=== PATIENT | male | born 1970 | race Asian ===

== ENCOUNTER 2017-10-09 14:54 | Outpatient (CLI) | END 2017-10-09 14:55 | disposition home or self-care (01) ==

== ENCOUNTER 2019-02-04 12:59 | Outpatient (CLI) | payer OTHER ==
--- NOTE | 2019-02-04 13:34 | SLEEP CARE CONSULTATION ---
Information from patient questionnaire entered by Shelby Hernandez. I have reviewed and concur with the information entered by Shelby Hernandez. This document represents the service I personally performed and the decisions made by me, Sandy Branch MD, [facility]. History of Present Illness Previous diagnosis: Severe, Obstructive Sleep Apnea-Hypopnea Syndrome AHI: 31.4 Reason for CPAP/BiPAP follow up: annual Equipment type: BiPAP Equipment obtained from: [employer] HPI additional information: HPI: Mr. Briones returned today for follow up of BiPAP therapy. He was diagnosed to have severe obstructive sleep apnea-hypopnea syndrome. The patient wears a Respironics DreamWear nasal cushion mask. He gets his supplies from [employer]. He reports using the device nightly and all through the night. The compliance report shows usage in 180 nights out of the past 180 nights, averaging 7.2 hours a night. He complained of no particular problem with the device such as soreness on the face, dry nose, epistaxis, nasal congestion or headache. He thinks that the pressure of 18/12 is comfortable. On the BiPAP therapy he notices improvement in his sleep quality, and that he wakes up fe eling fresher in the morning and more awake/alert during the day. His notices no snore at all. The average residual AHI is 0.7; and air leak, 4.3 L/min. CPAP Compliance Data - Data Reviewed with Patient Average duration of nightly device use: 7.25 Compliance rate %: 100 (180 days) Current pressure setting (cmH2O): 18/12 Average residual AHI: 0.7 Subjective Patient concerns: reports: nasal congestion Initial [place] Sleepiness Scale score: 18 Current [place] Sleepiness Scale score: 16 Allergies and Home Medications Drug allergies reviewed: Yes Home medication list reviewed: Yes Allergy and home medication list: BP Medication Metformin HCL Review of Systems Review of systems same as previous: Yes Physical Exam Weight: 280 lb Impression and Plan IMPRESSION: 1. Obstructive Sleep Apnea-Hypopnea Syndrome, severe, with the patient doing well on BiPAP therapy. He continues to have excellent compliance and significant clinical improvement. The current pressure appears effective and comfortable. Overall, he is very satisfied with treatment and plans to continue with it long-term. Because the BiPAP is now older than the useful life of 5 years, I will order the patient a new one and set it at 18/12 cmH2O. He would like to switch durable medical supplier. PLAN: 1. Prescription made for a new BiPAP, heated humidifier, and related supplies. 2. Try to lose weight 3. Try ResMed N30i mask. 4. Return for follow up after one month on the new machine. I spent 100% of this 20 minute visit face to face with the patient with greater than 50% of this was spent time counseling the patient and coordination of care.
== END 2019-02-04 13:00 | disposition home or self-care (01) ==
LOC: SC 12:59
PROVIDERS: ATTEND Internal Medicine Pulmonary Disease
DX: G47.33 Obstructive sleep apnea (adult) (pediatric) (principal)
CPT/HCPCS: 99212; 99213

== ENCOUNTER 2019-03-26 10:02 | Observation (INO) | payer OTHER ==
--- NOTE | 2019-03-26 10:27 | ED Physician Documentation ---
History of Present Illness - Stated complaint Stated Complaint: HEART RACING - Chief complaint Chief Complaint: Cardiac - History obtained from History obtained from: Patient - History of Present Illness Timing: How many days ago (3) - Additonal information Additional information: This is a 48-year-old man who presents with complaints that he just had been having some episodes of feeling really uneasy for the past 3 to 4 days and like his heart is beating fast. He woke up several times through the night last night with it just, sweaty. First episode happened 3 nights ago around 3 AM. They last only for a brief period of time minutes and then resolved spontaneously. Yesterday he had gone to work he came home went to the gym and worked out felt perfectly fine and then was sitting came home took a shower and was sitting down at dinner when he felt really sweaty had that uneasy sensation and checked his heart rate it was about 100. He rate continue to check his blood heart rate several times and it stayed in the 90s. Yesterday at that time his blood pressure was 106/67 but 2 days ago was running up about 148/80 which is high for him. He did not have any specific pain just felt kind of "uneasy". He did not feel dizzy or nauseous. He was not short of breath. He is not diabetic. He has not had any upper respiratory symptoms although he did take NyQuil 2 nights ago just because he is been restless and waking up sweaty and feeling uneasy. He denies any history of stress saying that life is good he is retired from the [employer] and he has a good job. He has no cardiac history. No history of asthma. His mom 3 years ago of cancer his father has had stroke but otherwise he has no family history of cardiac disease. He is not a smoker. He did state that he did drink quite a bit last week more than normal just because of the . He has an office job. He is not on any type of diet. Review of Systems Constitutional: reports: Sweats. denies: Fever Eyes: denies: Decreased vision Ears: denies: Loss of hearing Nose: denies: Congestion Throat: denies: Sore throat Cardiac: reports: Palpitations. denies: Chest pain / pressure Respiratory: denies: Dyspnea, Cough GI: denies: Nausea, Vomiting : denies: Dysuria, Frequency Skin: denies: Rash Musculoskeletal: denies: Neck pain, Back pain Neurologic: denies: Generalized weakness, Focal weakness, Near syncope PD PAST MEDICAL HISTORY - Past Medical History Past Medical History: Yes Cardiovascular: Hypertension - Past Surgical History Past Surgical History: Yes Ortho: Knee replacement, Shoulder arthroplasty, Other - Present Medications Home Medications: Ambulatory Orders Medication Instructions Recorded Confirmed Isosorbide Dinitrate 20 mg PO DAILY 03/26/19 03/26/19 - Allergies Allergies/Adverse Reactions: Allergies Allergy/AdvReac Type Severity Reaction Status Date / Time No Known Drug Allergies Allergy Verified 03/26/19 10:12 - Social History Does the pt smoke?: No Smoking Status: Never smoker Does the pt drink ETOH?: Yes ETOH Use: Beer, Liquor Does the pt have substance abuse?: No - Immunizations Immunizations are current?: Yes - POLST Patient has POLST: No PD ED PE NORMAL - Vitals Vital signs reviewed: Yes - General General: Alert and oriented X 3, No acute distress, Well developed/nourished (Overweight very pleasant 48-year-old man who is not in any acute distress) - HEENT HEENT: Atraumatic, PERRL, EOMI, Moist mucous membranes, Pharynx benign - Neck Neck: Supple, no meningeal sign, No adenopathy, No JVD - Cardiac Cardiac: RRR, No murmur, Strong equal pulses - Respiratory Respiratory: No respiratory distress, Clear bilaterally - Abdomen Abdomen: Normal bowel sounds, Soft, Non tender - Derm Derm: Normal color, Warm and dry, No rash - Extremities Extremities: No edema - Neuro Neuro: Alert and oriented X 3, casting chipper 2-12 intact, No motor deficit, No sensory deficit, Normal speech - Psych Psych: Normal mood, Normal affect Results - Vitals Vitals: Vital Signs - 24 hr 03/26/19 03/26/19 03/26/19 10:07 10:43 12:09 Temperature 36.5 C 36.9 C Heart Rate 73 83 68 Respiratory 20 18 16 Rate Blood Pressure 151/103 H 154/94 H 123/78 O2 Saturation 100 98 98 03/26/19 14:15 Temperature Heart Rate 62 Respiratory 10 L Rate Blood Pressure 118/84 H O2 Saturation 99 Oxygen O2 Source Room air - EKG (time done) 1008 Rate: Rate (enter#) (72) Rhythm: NSR Intervals: No: Wide QRS Ischemia: Normal ST segments Compare to prior EKG: Old EKG unavailable 1402 Rate: Rate (enter#) (61) Rhythm: NSR Intervals: Normal NM. No: Wide QRS Ischemia: Non specific changes - Labs Labs: Laboratory Tests 03/26/19 03/26/19 03/26/19 10:16 10:16 10:16 WBC 3.7 L RBC 4.85 Hgb 15.6 Hct 44.1 MCV 90.9 MCH 32.2 H MCHC 35.4 RDW 12.8 Plt Count 114 L MPV 11.8 H Neut # (Auto) 1.5 Lymph # (Auto) 1.8 [place] # (Auto) 0.3 Eos # (Auto) 0.1 Baso # (Auto) 0.0 Absolute Nucleated RBC 0.00 Nucleated RBC % 0.0 Sodium 135 Potassium 4.1 Chloride 101 Carbon Dioxide 27 Anion Gap 7.0 BUN 16 Creatinine 0.9 Estimated GFR (MDRD) 89 Glucose 135 H Calcium 8.9 Total Bilirubin 0.9 AST 126 H ALT 161 H Alkaline Phosphatase 59 Troponin I High Sens 14.5 Total Protein 8.0 Albumin 4.4 Globulin 3.6 Albumin/Globulin Ratio 1.2 Lipase 37 03/26/19 13:35 WBC RBC Hgb Hct MCV MCH MCHC RDW Plt Count MPV Neut # (Auto) Lymph # (Auto) [place] # (Auto) Eos # (Auto) Baso # (Auto) Absolute Nucleated RBC Nucleated RBC % Sodium Potassium Chloride Carbon Dioxide Anion Gap BUN Creatinine Estimated GFR (MDRD) Glucose Calcium Total Bilirubin AST ALT Alkaline Phosphatase Troponin I High Sens 14.1 Total Protein Albumin Globulin Albumin/Globulin Ratio Lipase - Rads (name of study) CXR Radiology: See rad report (neg acute) PD MEDICAL DECISION MAKING - ED course Complexity details: reviewed results, d/w patient ED course: Chest x-ray is clear. His initial troponin is normal and he reports a chronic elevation of his liver enzymes. Is not had any symptoms here in the emergency department, was given aspirin. Will recheck a 3-hour troponin. 3-hour troponin is normal. I discussed with the hospitalist and the patient will be admitted for chest pain observation and rule out with stress testing if negative. Departure - Departure Disposition: ED Place in Observation Clinical Impression: Chest pain Qualifiers: Chest pain type: unspecified Qualified Code(s): R07.9 - Chest pain, unspecified Condition: Good
[2019-03-26 10:28] LABS: BASOPHILS % (AUTO) 0.8 %; EOSINOPHILS # (AUTO) 0.1 10^3/uL (0.0-0.7); EOSINOPHILS % (AUTO) 2.7 %; HGB - HEMOGLOBIN 15.6 g/dL (14.0-18.0); LYMPHOCYTES # (AUTO) 1.8 10^3/uL (1.5-3.5); LYMPHOCYTES % (AUTO) 47.7 %; MEAN CORPUSCULAR HEMOGLOBIN 32.2 pg (27.0-31.0); MEAN CORPUSCULAR HGB CONC 35.4 g/dL (32.0-36.0); MEAN CORPUSCULAR VOLUME 90.9 fL (80.0-94.0); MEAN PLATELET VOLUME 11.8 fL (7.4-11.4); MONOCYTES # (AUTO) 0.3 10^3/uL (0.0-1.0); MONOCYTES % (AUTO) 7.9 %; NEUTROPHILS # (AUTO) 1.5 10^3/uL (1.5-6.6); NEUTROPHILS % (AUTO) 40.6 %; PLT - PLATELET COUNT 114 10^3/uL (130-450); RED BLOOD COUNT 4.85 10^6/uL (4.70-6.10); RED CELL DISTRIBUTION WIDTH 12.8 % (12.0-15.0); WHITE BLOOD COUNT 3.7 x10^3/uL (4.8-10.8)
[2019-03-26] MEDS ORDERED: ASPIRIN CHEW 81 MG TABLET PO STA (10:38)
[2019-03-26 10:39] LABS: ALBUMIN 4.4 g/dL (3.2-5.5); ALBUMIN/GLOBULIN RATIO 1.2 (1.0-2.2); BILIRUBIN,TOTAL 0.9 mg/dL (0.2-1.0); CALCIUM 8.9 mg/dL (8.5-10.3); CREATININE 0.9 mg/dL (0.6-1.2)
--- NOTE | 2019-03-26 11:29 | XRAY Report ---
Reason: palpitations Procedure Date: 03/26/2019 Accession Number: [id number] / [id number] Procedure: XR - Chest 1 View X-Ray CPT Code: 23782 Final Report FULL RESULT: EXAM: CHEST RADIOGRAPHY EXAM DATE: 03/26/2019 10:27 AM. CLINICAL HISTORY: Palpitations. COMPARISON: None. TECHNIQUE: 1 view. FINDINGS: Lungs/Pleura: No focal opacities evident. No pleural effusion. No pneumothorax. Mediastinum: Within exam limitations, the cardiomediastinal contour is normal. Other: None. IMPRESSION: No acute radiographic cardiopulmonary process RADIA
[2019-03-26] MEDS ORDERED: SODIUM CHLORIDE FLUSH 0.9% 10 ML SYRINGE IVP PRN (20:06)
--- NOTE | 2019-03-26 20:57 | HISTORY & PHYSICAL EXAMINATION ---
Chief Complaint - Chief Complaint Chief Complaint: chest discomfort History of Present Illness - Admitted From Admitted From:: [facility] - History Obtained From Records Reviewed: yes History obtained from: patient - History of Present Illness HPI Comment/Other: Patient is a 48 y/o M who presented to the ED with complain of a left-sided chest discomfort/ uneasiness which started 3 days ago. Today evening he experienced tachycardia and was diaphoretic. He also had another episode of the discomfort which typically lasts about 1 minute. It was non radiating. He had worked out in the gym the previous day. Prior to 3 days ago he had never experienced this. He reports a 15-20lbs weight gain in the past 6 months. He denies any significant change in his eating habits but had not been exercising. He reports only taking isordil for hypertension. He denies dyspnea, abd pain, nausea, vomiting, fever or chills. In the ED work up included troponin X2 which has been negative so far. He is being admitted to complete work up for a chest pain rule out which will include an exercise stress test. History - Past Medical History Cardiovascular: reports: Hypertension MRSA Hx?: No - Past Surgical History Ortho: reports: Knee replacement, Shoulder arthroplasty, Other - Family & Social History Family History Comment/Other: mother: from pancreatic cancer. father: diabetes mellitus, CVA. daughter: ulcerative colitis Living arrangement: At home Living Situation: With spouse/s.o. Social History Notes: He drinks occasionally. Denies tobacco or illicit drug use. - POLST Patient has POLST: No POLST Status: Full Code Meds/Allgy - Home Medications Home Medications: Ambulatory Orders Medication Instructions Recorded Confirmed Isosorbide Dinitrate 20 mg PO DAILY 03/26/19 03/26/19 - Allergies Allergies/Adverse Reactions: Allergies Allergy/AdvReac Type Severity Reaction Status Date / Time No Known Drug Allergies Allergy Verified 03/26/19 10:12 Review of Systems - Constitutional Constitutional: reports: Weight gain. denies: Fever, Chills, Poor appetite, Diaphoresis - Eyes Eyes: denies: Blurred vision, Vision loss, Dipolpia - Ears, Nose & Throat Ears, Nose & Throat: denies: Tinnitus, Vertigo - Cardiovascular Cariovascular: reports: Chest pain. denies: Irregular heart rate, Palpitations, Edema, Lightheadedness, Syncope, Exertional dyspnea, Decr. exercise tolerance - Respiratory Respiratory: reports: Snoring. denies: Cough, Sputum production, Wheezing, SOB at rest, SOB with exertion - Gastrointestinal Gastrointestinal: denies: Abdominal pain, Abdominal distention, Constipation, Diarrhea, Nausea, Vomiting, Coffee grounds emesis, Reflux/heartburn - Genitourinary Genitourinary: denies: Dysuria, Frequency, Urgency, Hematuria - Musculoskeletal Musculoskeletal: denies: Muscle pain, Back pain, Joint pain - Integumentary Integumentary: denies: Rash, Pruritis, Lesions, Dryness - Neurological Neurological: denies: General weakness, Focal weakness, Headache, Dizziness - Psychiatric Psychiatric: denies: Depression, Anxiety - Endocrine Endocrine: denies: Polyuria, Polydypsia - Hematologic/Lymphatic Hematologic/Lymphatic: denies: Anemia, Bruising, Petechiae Prior Level of Functionality: Patient is independent of activities of daily living. Exam - Vital Signs Vital Signs: Vital Signs x48h Temp Pulse Pulse Resp BP BP Pulse Ox 03/26/19 18:44 36.6 C 72 20 142/93 H 96 03/26/19 18:30 69 17 142/90 H 99 03/26/19 16:58 36.6 C 74 18 145/92 H 98 03/26/19 14:15 62 10 L 118/84 H 99 - Physical Exam General Appearance: positive: No acute distress, Alert Eyes Bilateral: positive: Normal inspection, PERRL, EOMI ENT: positive: ENT inspection nml, Pharynx nml, No signs of dehydration Neck: positive: Thyroid nml, No JVD, Trachea midline Respiratory: positive: Chest non-tender, No respiratory distress, Breath sounds nml. negative: Wheezes, Rales, Rhonchi Cardiovascular: positive: Regular rate & rhythm, No murmur Abdomen: positive: Non-tender, No organomegaly, Nml bowel sounds, No distention. negative: Guarding, Rebound Back: positive: Nml inspection Skin: positive: Color nml, No rash, Warm, Dry. negative: Diaphoresis Extremities: positive: Non-tender, Full ROM, Nml appearance, No pedal edema Neurologic/Psychiatric: positive: Oriented x3, CN's nml (2-12), Motor nml, Sensation nml Conclusion/Plan - Problem List (1) Chest pain Conclusion/Plan: Troponin has been negativeX2. Complete trending troponin. Patient given a full dose aspirin. BNP, Lipid panel and TSH pending Exercise stress test in the am NPO after midnight for testing and procedure Qualifiers: Chest pain type: unspecified Qualified Code(s): R07.9 - Chest pain, unspecified (2) Hypertension Conclusion/Plan: On isordil Patient may need a CCB or beta juan jose added upon discharge - Lab Results Fish Bones: 03/26/19 10:16 03/26/19 10:16 Core Measures - Anticipated LOS I expect patient to be DC'd or transferred within 96 hours.: Yes - DVT/VTE - Prophylaxis VTE/DVT Device ordered at admit?: Yes
[2019-03-26] MEDS: SODIUM CHLORIDE FLUSH 0.9% 10 ML SYRINGE IVP SCH (23:55)
[2019-03-27 05:53] LABS: HB2 TOTAL 15.3 g/dL; HEMOGLOBIN A1C 0.71 g/dL; HEMOGLOBIN A1C % 6.4 % (4.6-6.2)
[2019-03-27 05:57] LABS: CHOL/HDL RATIO 7.5 (<5.0); CHOLESTEROL 187 mg/dL; HDL CHOLESTEROL 25 mg/dL
[2019-03-27 06:42] LABS: LDL CHOLESTEROL,DIRECT 93 mg/dL; LDLD/HDL RATIO 3.7 (<3.6)
[2019-03-27] MEDS: SODIUM CHLORIDE FLUSH 0.9% 10 ML SYRINGE IVP SCH (08:32)
[2019-03-27] MEDS ORDERED: ASPIRIN EC 325 MG TABLET PO SCH (09:18)
--- NOTE | 2019-03-27 10:11 | PHARMACY PROGRESS NOTE ---
- Best Possible Medication History Admit Date and Time: 03/26/191817 Processed by: Nursing Medication History completed: Yes As the person ultimately responsible for medication therapy, providers are able to order a medication from an existing home medication list in [facility] via the "Reconcile Routine" prior to Confirmation of that medication by customer support analyst. Such practice is discouraged except when the physician, in their clinical judgment, deems that a medical need exists for a medication without regard to previous use.
--- NOTE | 2019-03-27 15:36 | Nuclear Medicine Report ---
Reason: chest pain Procedure Date: 03/27/2019 Accession Number: [id number] / [id number] Procedure: NM - Myocardial Perfusion STR/RST CPT Code: Final Report FULL RESULT: EXAM: SINGLE-ISOTOPE EXERCISE STRESS TEST. SINGLE-ISOTOPE AND ONE-DAY REST/STRESS MYOCARDIAL PERFUSION SCANS WITH TOMOGRAPHIC IMAGING, QUANTITATIVE ANALYSIS, WALL MOTION ANALYSIS AND CALCULATION OF EJECTION FRACTION. EXAM DATE: 03/27/2019 02:15 PM. CLINICAL HISTORY: Chest pain. COMPARISON: None available. TECHNIQUE: A rest myocardial perfusion scan was done with tomography after the intravenous administration of 10.1 mCi Tc-99m sestamibi. After an appropriate delay, a treadmill exercise stress was performed according to department protocol. The patient exercised for 9 minutes and 29 seconds. The maximum heart rate was 154 bpm, which was 90% of the maximum predicted heart rate of 170 bpm. At approximately peak heart rate, 40.5 mCi of Tc-99m sestamibi was injected for stress myocardial perfusion scan. Motion correction was applied when appropriate. Gated tomographic images were obtained for wall motion analysis and computation of left ventricular ejection fraction. FINDINGS: Images show a mild defect in the distal anteroseptal wall extending into the apex which appears slightly more severe on the rest images compared to the stress images. No convincing reversible perfusion defects. Summed stress score 4. Summed rest score 3. Summed difference score 1. Wall motion analysis demonstrates no focal wall motion abnormality. The left ventricular end-diastolic volume is 97 cc. The left ventricular end-systolic volume is 35 cc. The left ventricular ejection fraction is calculated to be 64%. IMPRESSION: 1. Mild fixed defect in the apex and distal anteroseptal wall versus attenuation artifact. No convincing reversible perfusion defects. Based on computer analysis, mildly abnormal study with no ischemia. 2. Normal left ventricular ejection fraction of 64%. 3. Normal segmental and global wall motion. 4. Normal left ventricular cavity size, no change with stress. Please correlate findings with stress ECG tracings and procedure notes. RADIA
--- NOTE | 2019-03-27 15:52 | Discharge Plan ---
Discharge Plan Problem Reviewed?: Yes Disposition: Home, Self Care Condition: Stable Prescriptions: Fenofibrate [Tricor] 134 mg PO DAILY #30 tablet Diet: Diabetic Activity Restrictions: Activity as Tolerated Shower Restrictions: No Driving Restrictions: No Instruction Topics: Diabetes Carbs Health Concerns: You were here for evaluating "uneasy feeling", which was handled as chest pain with cardiac labs and a stress test. The stress test was stable. Labs showed that you have very elevated Triglycerides and borderline Diabetes Mellitus. Plan of Treatment: Resume your pre-hospital medications. Start following a Diabetic diet. See your PCP for follow-up and you may come to the [facility] [place] here for Diabetic Education. A new prescription has been electronically ordered for treating the very high Triglycerides: take Tricor 134 mg once daily. You should see your PCP for further evaluation of the "uneasy feeling" which could be from a sudden change in heart rate or blood pressure. Care Goals: As above. Assessment: The patient is agreeable with the plan. Additional Instructions or Follow Up instructions: If you have new or worsening symptoms, contact your PCP or go to the ER. Follow-Up Care: [facility] - Diabetes Ed No Smoking: If you smoke, Please STOP! Call for help. Follow-up with: Rajni Ovalle ARNP [Primary Care Provider] -
--- NOTE | 2019-03-27 16:14 | DISCHARGE SUMMARY ---
Discharge Summary Admit Date: 03/26/19 Discharge Date: 03/27/19 Discharging Provider: Dr Gwendolyn Vidales Primary Care Provider: Rajni Ovalle Code Status: Attempt Resuscitation Condition at Discharge: Stable Discharge Disposition: 01 Home, Self Care - DIAGNOSES Admission Diagnoses: 1) CP 2) HTN 3) Obesity Discharge Diagnoses with Status of Each Condition: See below - HPI History of Present Illness: From the admission H&P of Dr Georgina Montesinos: Patient is a 48 y/o male of descent who emigrated to the [place] in his teen years, who presented to the ED with complain of a left-sided chest "uneasiness" which he had daily for several minutes, starting 3 days ago. Today evening he experienced tachycardia and was diaphoretic. He also had another episode of the "uneasiness" which typically lasts about 1 minute. It was non radiating. He had worked out in the gym the previous day. Prior to 3 days ago he had never experienced this. He reports a 15-20lbs weight gain in the past 6 months. He denies any significant change in his eating habits but had not been exercising as much. He reports taking "Isordil for hypertension". He denies dyspnea, abd pain, nausea, vomiting, fever or chills. In the ED work up included troponin X2 which has been negative so far. He is being admitted to complete work up for a chest pain rule out which will include an exercise stress test. - CONSULTS | PROCEDURES Procedures: Exercise stress test with nuclear myocardial perfusion imaging - HOSPITAL COURSE Hospital Course: 1) Chest pain He declined ever calling this new symptom chest pain or even a discomfort but only an "uneasiness". In further questioning, he described this as being a feeling of sudden racing of his heart followed by dizziness. It has never happened when he exercises in the gym. His EKG at baseline was abnormal. Troponins were all negative. He underwent a treadmill stress test with nuclear myocardial perfusion imaging. The patient achieved a peak heart rate of 90% and was severely short of breath. There was no chest pain or desaturation with the exercise. There were no new EKG changes. The nuclear portion of the scan did not reveal reversible defects. Since his symptoms actually sound more like tachycardia with resulting drop in blood pressure, he may need a Holter monitor and further outpatient work-up. 2) Abnormal EKG This patient has a remarkably abnormal EKG with diffuse T wave flattening. Because of this abnormal EKG, and cardiac risk factors of male gender, hypertens ion, borderline diabetes, morbid obesity and untreated elevated cholesterol, he should have repeat cardiac testing and be referred to Cardiology, if there are any further suspicious symptoms. 3) HTN He was not sure about the name of his blood pressure medication but thought it was "Isordil". This is an unlikely single agent to be on for blood pressure control, therefore his cardiac situation was not entirely clear. 3) Borderline DM His admission serum glucose was over 200 therefore A1c was drawn and found to be 6.4 consistent with borderline diabetes. He was seen by the wheelman while here, given a diabetic diet to follow and should have follow-up for more aggressive management of this condition. 5) Hypertriglyeridemia His fasting serum triglycerides were 450 and this is also consistent with poorly controlled diabetes. He was started on TriCor 134 mg, but the prescription at the [facility] was confirmed for 145 mg daily. 6) Morbid obesity, BMI 40-49 Weight loss was discussed with the patient by myself and the wheelman. - ALLERGIES Allergies/Adverse Reactions: Allergies Allergy/AdvReac Type Severity Reaction Status Date / Time No Known Drug Allergies Allergy Verified 03/26/19 10:12 - MEDICATIONS Home Medications: Ambulatory Orders Medication Instructions Recorded Confirmed Isosorbide Dinitrate 20 mg PO DAILY 03/26/19 03/26/19 Fenofibrate [Tricor] 134 mg PO DAILY #30 tablet 03/27/19 - PHYSICAL EXAM AT DISCHARGE General Appearance: positive: No acute distress, Alert Eyes Bilateral: positive: Normal inspection, PERRL, EOMI ENT: positive: ENT inspection nml, No signs of dehydration Neck: positive: Nml inspection, No JVD, Other (Very obese neck) Respiratory: positive: No respiratory distress, Breath sounds nml Cardiovascular: positive: Regular rate & rhythm, No murmur Abdomen: positive: Non-tender, Other (Obese) Skin: positive: Color nml Extremities: positive: No pedal edema Neurologic/Psychiatric: positive: Oriented x3, Other (Grossly intact) - LABS Result Diagrams: 03/26/19 10:16 03/26/19 10:16 - DIAGNOSTIC IMAGING Diagnostic Imaging Results: Final report reviewed - FOLLOW UP Follow Up: See PCP in 5-10 [facility] follow up. - TIME SPENT Time Spent in Discharge (Minutes): 30
[2019-03-27 16:23] VITALS: BP 144/93
--- NOTE | 2019-03-27 17:06 | CARDIAC PROCEDURE NOTE ---
DATE OF SERVICE: 03/27/2019 Physician: Gwendolyn Vidales MD INDICATION: Chest pain. CARDIAC RISK FACTORS: Male gender, obesity, prediabetes and newly diagnosed hypertriglyceridemia. DESCRIPTION OF PROCEDURE: After signing informed consent, the patient underwent a Zachery-protocol treadmill stress test with nuclear myocardial perfusion imaging. RESTING HEART RATE: 90. PEAK HEART RATE: 154 (90% predicted maximum heart rate for age). RESTING BLOOD PRESSURE: 146/94. PEAK BLOOD PRESSURE: 207/86. (The patient did not take his usual morning blood pressure medication.) The patient exercised for 9 minutes and 30 seconds on a Zachery-protocol treadmill stress test. He achieved a peak heart rate of 154 (90% PMHR) and 10.2 METS. The patient had no chest pain, he had moderate shortness of breath and described his perceived exertion at 17/20 on a Emilio scale. Oxygen saturation was 97-99% throughout the test. There was 1 PVC during the entire test. RESTING EKG: Normal sinus rhythm, flat T waves in leads I, aVL and V6. EKG AT PEAK: Unchanged flat T waves, no new ST-segment depressions, or new T- wave abnormalities, at peak heart rate. SUMMARY 1. Abnormal resting EKG. 2. Good exercise tolerance. 3. No ischemic changes by EKG criteria on this exercise stress test. 4. Nuclear images reported separately. 5. Cardiac risk based on EKG criteria alone: Low. TD: 03/27/2019 16:33 FLAKO
[2019-03-28] MEDS ORDERED: FENOFIBRATE 48 MG TABLET PO SCH (09:00)
== END 2019-03-27 16:25 | disposition home or self-care (01) ==
LOC: ED 10:02 → MS2 18:18
PROVIDERS: ADMIT Internal Medicine; ATTEND Internal Medicine
DX: R07.9 Chest pain, unspecified (principal); R94.31 Abnormal electrocardiogram [ECG] [EKG]; I10 Essential (primary) hypertension; R73.03 Prediabetes; E78.1 Pure hyperglyceridemia; E66.01 Morbid (severe) obesity due to excess calories; Z68.41 Body mass index [BMI] 40.0-44.9, adult
CPT/HCPCS: 36415; 71045; 78452; 80053; 80061; 83036; 83690; 83721; 83880; 84443; 84484; 85025; 93005; 93017; 99285; A9270; A9500; G0378

== ENCOUNTER 2019-07-29 16:38 | Outpatient (CLI) | payer OTHER ==
--- NOTE | 2019-07-29 09:37 | SLEEP CARE CONSULTATION ---
Information from patient questionnaire entered by Gardenia Casper. I have reviewed and concur with the information entered by Gardenia Casper. This document represents the service I personally performed and the decisions made by me, Sandy Branch MD, [facility]. History of Present Illness Previous diagnosis: Severe, Obstructive Sleep Apnea-Hypopnea Syndrome AHI: 31.4 Reason for follow up: first compliance Equipment type: BiPAP Equipment obtained from: [facility] additional information: To minimize the risk of COVID-19 exposure, the patient has requested and consented to this video-telemedicine visit. The patient also agrees to having his insurance billed. HPI: Mr. Briones was called today to follow up on the BiPAP therapy. He was diagnosed to have severe obstructive sleep apnea-hypopnea syndrome. The patient wears a ResMed N30i mask. He reports using the device nightly and all through the night. The compliance report shows usage in 29 nights out of the past 30 nights, averaging 7.2 hours a night. The > 4 hour compliance rate for the past 30 days is 96.7%. He complained of no particular problem with the device such as soreness on the face, dry nose, epistaxis, nasal congestion or headache. He thinks that the pressure of 18/12 cmH2O is too low. On the BiPAP therapy he notices improvement in his sleep quality, and that he wakes up feeling fresher in the morning and more awake/alert during the day. The average residual AHI is 0.4 ; and average time in large leak per day is 0. CPAP Compliance Data - Data Reviewed with Patient Average duration of nightly device use: 7H 38M Compliance rate %: 92.9 Current pressure setting (cmH2O): 18/12 Humidity settin Heated hose settin Average residual AHI: 0.5 Average large leak: 0S Subjective Initial [place] Sleepiness Scale score: 18 Allergies and Home Medications Drug allergies reviewed: Yes Home medication list reviewed: Yes Review of Systems Review of systems same as previous: Yes Physical Exam Height: 5 ft 8 in Impression and Plan IMPRESSION: 1. Obstructive Sleep Apnea-Hypopnea Syndrome, severe, with the patient doing well on BiPAP therapy. He has excellent compliance and significant clinical improvement. The current pressure appears effective but not too comfortable. His mask fits well. Overall, he is very satisfied with treatment and plans to continue with it long-term. For his comfort, I will raise the pressure setting. PLAN: 1. BiPAP raised to 21/15 cmH2O via the modem. 2. Try to lose weight 3. Try other masks and nasal pillows. 4. Return in three months for follow up (the patient would like to make sure that his supplies are not going to run out). Visit Type: Telehealth Video Video Type: GetThis Location of Provider: Home Patient agrees and consents to this telehealth visit type: Yes Time Spent with Patient (minutes): 12 Provider Statement: I spent 100% of the Telehealth Video Call with the patient with greater than 50% spent counseling the patient and coordination of care.
== END 2019-07-29 16:39 | disposition home or self-care (01) ==
LOC: SC 16:38
PROVIDERS: ATTEND Internal Medicine Pulmonary Disease
DX: G47.33 Obstructive sleep apnea (adult) (pediatric) (principal)
CPT/HCPCS: 99212; 99213

== ENCOUNTER 2020-06-16 13:47 | Outpatient (CLI) | payer OTHER ==
--- NOTE | 2020-06-16 14:15 | SLEEP CARE CONSULTATION ---
Information from patient questionnaire entered by Rene Govea. I have reviewed and concur with the information entered by Rene Govea. This document represents the service I personally performed and the decisions made by me, Alina Pathak ARNP. History of Present Illness Service Date and Time: 06/16/2020 1347 Previous diagnosis: Severe, Obstructive Sleep Apnea-Hypopnea Syndrome AHI: 31.4 Reason for follow up: other (7-month followup) Equipment type: BiPAP Equipment obtained from: [employer] (getting supplies as needed) Mask style: Nasal Backup mask available: Yes (old mask) Last cushion change: 2 weeks Prior sleep studies: Yes Year and Where: [address] [place] [address] Sleep Lab HPI additional information: KIN BARRERA was diagnosed to have severe, AHI 31.4, obstructive sleep apnea-hypopnea syndrome and returned today for BIPAP therapy 7 month follow-up. CPAP Compliance Data - Data Reviewed with Patient Average duration of nightly device use: 7 h 11 min Compliance rate %: 96.7 Current pressure setting (cmH2O): 18/12 Humidity settin Heated hose settin Average residual AHI: 0.4 Average large leak: 0 sec Subjective Patient concerns: reports: dry mouth, nose, throat (occasionally, will adjust humidity as needed). denies: aerophagia, mask discomfort, air blowing in eyes, mask leak noise, condensation in mask/hose, nasal congestion, epistaxis, other Observed to snore while using device: No Current pressure setting perceived as: comfortable On therapy, patient: reports: sleeping better, awakening more refreshed, being more awake and alert during the day, more rested overall. denies: drowsiness while driving Initial [place] Sleepiness Scale score: 18 (in 2018) Current [place] Sleepiness Scale score: 10 Allergies and Home Medications Drug allergies reviewed: Yes (NKDA) Home medication list reviewed: Yes (no changes) Review of Systems Review of systems same as previous: Yes (no changes) Physical Exam Heart Rate: 78 O2 Saturation: 96 Height: 5 ft 8 in Weight: 281 lb Body Mass Index: 42.7 BMI Classification: Morbidly Obese Impression and Plan 1. Obstructive Sleep Apnea-Hypopnea Syndrome, severe, with good treatment compliance and good apnea control. On CPAP therapy, the patient has better sleep quality and is more rested overall. He states that he occasionally gets some dry mouth but he adjusts his humidity setting and this resolves. He states sometimes he thinks he needs just a little more pressure but overall the current pressure setting is comfortable and he wants to stay with current settings. Patient's apnea severity and rationale for treatment to reduce apnea, improve sleep quality and reduce cardiovascular and cerebrovascular events was reviewed. I also reviewed the benefit of consistent device use of BIPAP for hypertension. I encouraged patient to try to lose weight. He is unable to go to the gym since they closed due to Covid pandemic. I encouraged him to increase walking or bike riding around home and to watch what he is eating. Currently patients BMI is 42.7. Obesity increases the risk of apnea, CPAP pressure requirements and overall health risks especially cardiovascular and diabetes. Thus patient is ad vised to try to lose weight. Weight loss can be done with reducing portion size, reducing refined foods and balancing content with vegetables, fruit and whole grain foods. He voiced understanding. * Continue auto BIPAP pressure at 18/12 cmH2O * Notify me if snoring with mask or feeling that the pressure is too much or too little * Attempt to lose weight * Call this office if any problems using CPAP * Return for follow up in 1 year, or sooner if concerns arise Counseling Topics: Spare mask, Weight loss health impact Visit Type: In Office Time Spent with Patient (minutes): 13 Provider Statement: I spent 100% of the Face to Face Visit with the patient with greater than 50% spent counseling the patient and coordination of care.
== END 2020-06-16 13:48 | disposition home or self-care (01) ==
LOC: SC 13:47
PROVIDERS: ATTEND Nurse Practitioner Family
DX: G47.33 Obstructive sleep apnea (adult) (pediatric) (principal); E66.01 Morbid (severe) obesity due to excess calories; Z68.41 Body mass index [BMI] 40.0-44.9, adult
CPT/HCPCS: 99212

== ENCOUNTER 2020-10-13 14:41 | Outpatient (CLI) | payer OTHER ==
--- NOTE | 2020-10-13 16:19 | MRI Report ---
PROCEDURE: Knee RT W/O INDICATIONS: RIGHT KNEE PAIN TECHNIQUE: Noncontrast sagittal PD fast spin echo and T2 fast spin echo with fat saturation, sagittal 3-D gradie nt sequence with fat saturation; coronal T1 spin echo and PD fast spin echo with fat saturation, and axial PD fast spin echo with fat saturation through the knee. COMPARISON: None. FINDINGS: Menisci: Medial meniscus: Prominent truncation of the free margin of the medial meniscus body with intrasubsta nce amorphous signal change. Lateral meniscus: Intact. Cruciate ligaments: Anterior cruciate ligament: Postsurgical changes related to ACL reconstruction. There is mild interme diate signal change of the graft within the intercondylar notch which likely early mucoid degeneratio n. No complete rupture is seen. Posterior cruciate ligament: Intact. Medial structures: The medial collateral ligament demonstrates medial bowing, mild thickening and adjacent edema which c ould be reactive to medial meniscal pathology, versus low grade sprain. Mild semimembranosus insertional tendinopathy with adjacent bursal fluid/edema. Visualized portions of the pes anserinus tendons appear normal. Lateral structures: Lateral collateral ligament appears grossly intact. Biceps femoris tendon appears intact. Iliotibial band within normal limits. Popliteus tendon within normal limits. Anterior structures: Mild patellar tendinopathy, with prepatellar and superficial infrapatellar edema. The quadriceps tendon appears intact. Medial and lateral patellofemoral ligaments appear grossly intact. Patellar alignment is normal. Hoffa's fat pad unremarkable. Bones and cartilage: Bones: No bone marrow contusions or fractures. Medial compartment: Diffuse partial thickness loss of the femoral and tibial cartilage. Lateral compartment: No focal chondral defect. Patellofemoral compartment: Mild surface fraying of the patellar and femoral trochlear cartilage. Joint space: No joint effusion. No Gipson?s cyst. No specific evidence of loose body identified. IMPRESSION: Medial meniscal tear involving the body. Postsurgical changes related to ACL reconstruction, with mild degeneration of the graft. No rupture. Semimembranosus insertional tendinopathy with adjacent bursal fluid. Mild patellar tendinopathy Mild medial and patellofemoral compartment joint degeneration. Reviewed by: Sunil Mcmillan MD on 10/13/2020 4:18 PM PDT Approved by: Sunil Mcmillan MD on 10/13/2020 4:18 PM PDT Station ID: [id number]
== END 2020-10-13 14:42 | disposition home or self-care (01) ==
LOC: DI 14:41
PROVIDERS: ATTEND Nurse Practitioner Family
DX: M25.561 Pain in right knee (principal); S83.241A Other tear of medial meniscus, current injury, right knee, initial encounter; M17.11 Unilateral primary osteoarthritis, right knee

== ENCOUNTER 2020-12-02 08:00 | Outpatient (CLI) | payer OTHER ==
--- NOTE | 2020-12-02 12:16 | XRAY Report ---
PROCEDURE: Knee 4 View RT INDICATIONS: R KNEE PX TECHNIQUE: 4 views of the right knee including standing bilateral views of both knees were acquired. COMPARISON: Right knee MRI 10/13/2020. FINDINGS: Bones: No fractures or dislocations. Postsurgical changes are redemonstrated consistent with prior A CL reconstruction. The joint spaces appear preserved. There is mild osteophytosis. No suspicious bony lesions. Soft tissues: There is a joint effusion. No suspicious soft tissue calcifications. IMPRESSION: 1. Postsurgical changes consistent with prior ACL reconstruction redemonstrated. 2. No fracture or dislocation. 3. Small joint effusion. Reviewed by: Armen Tran MD on 12/02/2020 12:14 PM PDT Approved by: Armen Tran MD on 12/02/2020 12:14 PM PDT Station ID: [id number]
== END 2020-12-02 23:59 | disposition home or self-care (01) ==
LOC: DI.N 08:00
PROVIDERS: ATTEND Physician Assistant
DX: M25.561 Pain in right knee (principal); M25.461 Effusion, right knee

== ENCOUNTER 2022-12-26 07:55 | Emergency (ER) | payer OTHER ==
--- NOTE | 2022-12-26 08:04 | ED Physician Documentation ---
PD HPI UPPER EXT INJURY - Stated complaint Stated Complaint: RT HAND LAC - Chief complaint Chief Complaint: Laceration - History obtained from History obtained from: Patient - History of Present Illness Location: Right, Hand (palm/hypothenar area, he pushed some trash down into the basket and cut hand with broken glass that had been put in there. He denies FB.) Type of injury: Laceration Where injury occurred: Home Timing - onset: Today Timing - details: Abrupt onset, Still present Worsened by: Palpating Associated symptoms: No: Weakness, Numbness Similar symptoms before: Has not had sx before Review of Systems Neurologic: denies: Focal weakness, Numbness PD PAST MEDICAL HISTORY - Past Medical History Past Medical History: Yes Cardiovascular: Hypertension, High cholesterol Respiratory: None Neuro: None Endocrine/Autoimmune: None GI: None : None HEENT: None Psych: None Musculoskeletal: None Derm: None - Past Surgical History Past Surgical History: Yes Ortho: Knee replacement, Shoulder arthroplasty, Other - Present Medications Home Medications: Ambulatory Orders Medication Instructions Recorded Confirmed No Known Home Medications 12/26/22 12/26/22 - Allergies Allergies/Adverse Reactions: Allergies Allergy/AdvReac Type Severity Reaction Status Date / Time No Known Drug Allergies Allergy Verified 12/26/22 07:58 - Social History Does the pt smoke?: No Smoking Status: Never smoker Does the pt drink ETOH?: Yes Does the pt have substance abuse?: No - Immunizations Immunizations are current?: Yes - POLST Patient has POLST: No POLST Status: Full Code PD ED PE NORMAL - Vitals Vital signs reviewed: Yes - General General: Alert and oriented X 3, No acute distress, Well developed/nourished - Derm Derm: Normal color, Warm and dry - Extremities Extremities: Other (right palm at hypothenar area with lac to fatty tissue. Mild bleeding still. No FB visible nor palpable. ) Results - Vitals Vitals: Vital Signs - 24 hr 12/26/22 07:58 Temperature 36.7 C Heart Rate 71 Respiratory 16 Rate Blood Pressure 157/81 H O2 Saturation 100 Oxygen O2 Source Room air Procedures - Laceration (location) right hand Length in cm: 2.3 Wound type: Linear, Into subcut fat, Clean Neurovascular status: Sensory intact, Motor intact, Vascular intact Tendon involvement: Tendon intact Anesthesia: Lidocaine 1% with epi Wound preparation: Irrigated copiously NS, Wound explored, To the base Skin layer closure: Nylon, Interrupted, Size #-0 - enter number (4) Other: Patient tolerated well, No complications, Dressing applied, Tetanus UTD PD Medical Decision Making - ED course Complexity details: considered differential (laceration in palm with movning area, and still some bleeding, so not amenable to steri strips nor glue. Will need to go with sutures. Shared decision with patient nd is in agreement. ), d/w patient Departure - Departure Disposition: 01 Home, Self Care Clinical Impression: Laceration of right palm Qualifiers: Encounter type: initial encounter Qualified Code(s): S61.411A - Laceration without foreign body of right hand, initial encounter Condition: Stable Record reviewed to determine appropriate education?: Yes Instructions: ED Laceration Hand Follow-Up: BENJAMIN ANSARI ARNP [Primary Care Provider] - Comments: It is okay to wash and shower. Clean off the wound twice a day with soap and water, or peroxide and water. Apply some antibiotic ointment to it to keep it moist. Also to watch for signs of infection such as purulence, redness or increasing pain. Return to your primary care or the ER at the specified time for suture removal. Suture removal 8 to 10 days. Tylenol ibuprofen as needed for pains. Forms: PCP List Discharge Date/Time: 12/26/22 08:37
[2022-12-26 08:05] VITALS: BP 157/81; O2SAT 100
== END 2022-12-26 08:37 | disposition home or self-care (01) ==
LOC: ED 07:55
DX: S61.411A Laceration without foreign body of right hand, initial encounter (principal); W25.XXXA Contact with sharp glass, initial encounter; Y93.E9 Activity, other interior property and clothing maintenance; Y92.009 Unspecified place in unspecified non-institutional (private) residence as the place of occurrence of the external cause
CPT/HCPCS: 12001; 99281

== ENCOUNTER 2023-01-05 14:06 | Outpatient (CLI) | payer OTHER ==
--- NOTE | 2023-01-05 14:58 | SLEEP CARE CONSULTATION ---
Information from patient questionnaire entered by Abundio Barrow. I have reviewed and concur with the information entered by Abundio Barrow. This document represents the service I personally performed and the decisions made by me, Alina Pathak ARNP. History of Present Illness Service Date and Time: 01/05/2023 1406 Previous diagnosis: Severe, Obstructive Sleep Apnea-Hypopnea Syndrome AHI: 31.4 Reason for follow up: annual (LAST SEEN 11/2021) Equipment type: BiPAP (Dreamstation BiPAP, recertified) Equipment obtained from: [employer] (getting supplies as needed) Mask style: Nasal Backup mask available: Yes (old mask) Last cushion change: 3 weeks Prior sleep studies: Yes Year and Where: [address] [facility] Sleep Lab HPI additional information: KIN BARRERA was diagnosed to have severe, AHI 31.4, obstructive sleep apnea-hypopnea syndrome and returned today for BIPAP therapy annual follow-up. Sleep Study - Results Prior sleep studies: Yes Year and Where: [address] [facility] Sleep Lab CPAP Compliance Data - Data Reviewed with Patient Average duration of nightly device use: 6 HRS 24 MINS 47SECS Compliance rate %: 93.9 (07/07/22-01/02/23; 173/180 days used) Current pressure setting (cmH2O): 09/04 Average residual AHI: 1.1 Central apnea: 0.2 Obstructive apnea: 0.6 Hypopnea: 0.3 Average large leak: 12 mins, 15 secs Subjective Missed days of use due to: reports: travel (took old machine) Patient concerns: reports: mask leak noise (occasionally), dry mouth, nose, throat (occasionally). denies: aerophagia, mask discomfort, air blowing in eyes, condensation in mask/hose, nasal congestion, epistaxis Observed to snore while using device: No Current pressure setting perceived as: comfortable On therapy, patient: reports: sleeping better, awakening more refreshed, being more awake and alert during the day, more rested overall. denies: drowsiness while driving Initial [place] Sleepiness Scale score: 18 (in 2018) Current [place] Sleepiness Scale score: 8 (01/05/23) Allergies and Home Medications Known drug allergies: No Drug allergies reviewed: Yes Home medication list reviewed: Yes (no changes) Allergy and home medication list: Allergies No Known Drug Allergies Allergy (Verified 01/04/23 09:56) Review of Systems Review of systems same as previous: Yes (no changes) Physical Exam Vital signs obtained and entered by: ABUNDIO Boykin MA Blood Pressure: 122/76 (LEFT ARM) Cuff size: regular Heart Rate: 82 O2 Saturation: 97 Height: 5 ft 8 in Weight: 243 lb Weight change since last visit: 12 lb loss Body Mass Index: 36.9 BMI Classification: Obese Impression and Plan 1. Obstructive Sleep Apnea-Hypopnea Syndrome, severe, with good treatment compliance and good apnea control. On CPAP therapy, the patient has better sleep quality and is more rested overall. Patient would like to try the Benavidez and Paykel Brevida nasal cushion mask. I will add this to his prescription update. We will follow-up with him next year. Patient has significant improvement of their sleep apnea and is satisfied with current CPAP therapy. Patient denies problems with oral dryness, nasal congestion, epistaxis, skin irritation or aerophagia. Patient's apnea severity and rationale for treatment to reduce apnea, improve sleep quality and reduce cardiovascular and cerebrovascular events was reviewed. I also reviewed the benefit of consistent device use of BIPAP for hypertension. 2. Obesity, unspecified. Currently patients BMI is 36.9. He has lost 12 pounds this year. He is walking regularly and trying to eat right. Obesity increases the risk of apnea, CPAP pressure requirements and overall health risks especially cardiovascular and diabetes. Thus patient is advised to continue to try to lose weight. * Continue BIPAP pressure at 18/12 cmH2O * Update supplies * Notify me if snoring with mask or feeling that the pressure is too much or too little * Continue to try to lose weight * Call this office if any problems using CPAP * Return for follow up in 1 year, or sooner if concerns arise Counseling Topics: Spare mask, Weight loss health impact Prescriptions: Device supplies Visit Type: In Office Time Spent with Patient (minutes): 20 Provider Statement: I spent 100% of the Face to Face Visit with the patient with greater than 50% spent counseling the patient and coordination of care.
[2023-01-05 15:04] VITALS: BP 122/76; O2SAT 97
== END 2023-01-05 14:07 | disposition home or self-care (01) ==
LOC: SC 14:06
PROVIDERS: ATTEND Nurse Practitioner Family
DX: G47.33 Obstructive sleep apnea (adult) (pediatric) (principal); E66.9 Obesity, unspecified; Z68.36 Body mass index [BMI] 36.0-36.9, adult
CPT/HCPCS: 99212; 99213